=== PATIENT | female | born 1970 | race Caucasian/White ===

== ENCOUNTER 2018-04-11 14:04 | Emergency (ER) | payer OTHER ==
[~2018-04-11] VITALS: Ht 165.1 cm; Wt 90.0 kg
[~2018-04-11 14:04] MED LIST: AMOXICILLIN500 M2 PO; AMOXICILLIN500 MG OR; BACTRIM DS1 TAB PO; CARBATROL100 MG OR; CHERATUSSIN OR; CIPROFLOXACN500 MG PO; FLEXERIL PO; KEFLEX500 M1 PO; LEXAPRO10 MG OR; LISINOPRIL10 MG PO; LORTAB 10 PO; LORTAB 10-325 M1 TAB PO; LORTAB 5/3255 MG PO; NAPROSYN500 MG PO; PHENERGAN25 M1 PR; PHENERGAN25 MG/TAB PO; TRILEPTAL150 MG OR; ULTRAM50 M1 PO; ULTRAM50 MG PO; ZOFRAN ODT4 MG PO
[2018-04-11] MEDS ORDERED: TESSALON PERLE100 MG PO (15:37)
[2018-04-11 15:44] VITALS: BP 144/74
== END 2018-04-11 15:44 | disposition home or self-care (01) ==
LOC: ED 14:04
DX: R05 Cough (principal); F17.210 Nicotine dependence, cigarettes, uncomplicated; R09.81 Nasal congestion

== ENCOUNTER 2018-08-05 09:07 | Emergency (ER) | payer OTHER ==
[~2018-08-05] VITALS: Ht 165.1 cm; Wt 90.9 kg
[~2018-08-05 09:07] MED LIST changes: +TESSALON PERLE100 MG PO
[2018-08-05] MEDS ORDERED: PREDNISONE50 MG PO ×2 (09:36→10:55)
[2018-08-05] MEDS ORDERED: PROAIR HFA108 MCG/AC PO ×2 (09:37→10:55)
[2018-08-05 09:44] LABS: HEMOGLOBIN 14.6 g/dl (12.0-16.0); IMMATURE GRANULOCYTES 0.4 % (0.0-5.0); MEAN CORPUSCULAR HGB CONC 32.4 g/L CALC (32.0-36.0); NEUT# 4.52 thou/uL (2.00-7.15); RED BLOOD COUNT 5.04 mill/uL (4.20-5.60); RED CELL DISTRI WIDTH 13.2 % (11.5-15.5)
[2018-08-05 09:51] LABS: ANION GAP 12 (6-22 (CALC)); BUN 14 mg/dL (7-17); BUN/CREATININE RATIO 26 (12-20 (CALC)); CARBON DIOXIDE 28 mmol/l (22-30); CHLORIDE 107 mmol/l (95-108); CREATININE 0.6 mg/dL (0.5-1.0); GFR > 60 ML/MIN (>=60 (CALC)); GFR FOR AFR.AMER. > 60 ML/MIN (>=60 (CALC)); POTASSIUM 4.7 mmol/l (3.5-5.1); SODIUM 142 mmol/l (137-146)
[2018-08-05 09:56] LABS: MEAN CELL VOLUME 89.3 fL CALC (80.0-100.0)
[2018-08-05] MEDS ORDERED: ZPAK PO ×2 (10:00→10:55)
[2018-08-05 10:19] VITALS: BP 135/66
== END 2018-08-05 10:19 | disposition left against medical advice (07) ==
LOC: ED 09:07
PROVIDERS: Family Medicine
DX: J44.1 Chronic obstructive pulmonary disease with (acute) exacerbation (principal); J45.901 Unspecified asthma with (acute) exacerbation; I10 Essential (primary) hypertension; F17.200 Nicotine dependence, unspecified, uncomplicated; R06.02 Shortness of breath; R06.2 Wheezing; R05 Cough

== ENCOUNTER 2019-07-23 21:57 | Emergency (ER) | payer OTHER ==
[~2019-07-23] VITALS: Ht 165.1 cm; Wt 77.0 kg
[~2019-07-23 21:57] MED LIST changes: +PREDNISONE50 MG PO; +PROAIR HFA108 MCG/AC PO; +ZPAK PO
[2019-07-24] MEDS ORDERED: BACTRIM DS1 TAB PO (00:11)
[2019-07-24] MEDS ORDERED: BACTROBAN TOP (00:11)
[2019-07-24] MEDS ORDERED: KEFLEX500 MG PO (00:11)
[2019-07-24 00:36] VITALS: BP 118/81
== END 2019-07-24 00:20 | disposition left against medical advice (07) ==
LOC: ED 21:57
DX: S91.301A Unspecified open wound, right foot, initial encounter (principal); L08.9 Local infection of the skin and subcutaneous tissue, unspecified; J43.9 Emphysema, unspecified; I10 Essential (primary) hypertension; F17.210 Nicotine dependence, cigarettes, uncomplicated; W22.8XXA Striking against or struck by other objects, initial encounter; Y92.009 Unspecified place in unspecified non-institutional (private) residence as the place of occurrence of the external cause; Z91.19 Patient's noncompliance with other medical treatment and regimen

== ENCOUNTER 2019-07-29 14:37 | Emergency (ER) | payer OTHER ==
[~2019-07-29] VITALS: Ht 165.1 cm; Wt 77.0 kg
[~2019-07-29 14:37] MED LIST changes: +BACTROBAN TOP; +KEFLEX500 MG PO
[2019-07-29] MEDS ORDERED: BACTRIM DS1 TAB PO (15:56)
[2019-07-29] MEDS ORDERED: KEFLEX500 MG PO (15:56)
[2019-07-29 16:25] VITALS: BP 131/85
== END 2019-07-29 17:01 | disposition home or self-care (01) ==
LOC: ED 14:37
DX: T23.211D Burn of second degree of right thumb (nail), subsequent encounter (principal); L03.011 Cellulitis of right finger; S90.811D Abrasion, right foot, subsequent encounter; L03.115 Cellulitis of right lower limb; I10 Essential (primary) hypertension; J43.9 Emphysema, unspecified; F17.200 Nicotine dependence, unspecified, uncomplicated; X10.2XXD Contact with fats and cooking oils, subsequent encounter; X58.XXXD Exposure to other specified factors, subsequent encounter

== ENCOUNTER 2019-09-24 08:50 | Emergency (ER) | payer OTHER ==
[~2019-09-24] VITALS: Ht 165.1 cm; Wt 69.0 kg
[2019-09-24] MEDS ORDERED: CEPHALEXIN500 M1 PO (09:18)
[2019-09-24] MEDS ORDERED: BACTRIM DS1 TAB PO (09:18)
[2019-09-24 10:10] VITALS: BP 142/74
== END 2019-09-24 10:10 | disposition home or self-care (01) ==
LOC: ED 08:50
DX: L03.315 Cellulitis of perineum (principal); I10 Essential (primary) hypertension; J43.9 Emphysema, unspecified; F17.210 Nicotine dependence, cigarettes, uncomplicated

== ENCOUNTER 2019-12-15 | Emergency (ER) | payer OTHER ==
[~2019-12-15] MED LIST changes: +CEPHALEXIN500 M1 PO
[2019-12-15 21:44] LABS: HEMATOCRIT 39.4 % (37.0-47.0); HEMOGLOBIN 12.7 g/dl (12.0-16.0); IMMATURE GRANULOCYTES 0.4 % (0.0-5.0); MEAN CELL VOLUME 87.2 fL CALC (80.0-100.0); MEAN CORPUSCULAR HGB 28.1 pG CALC (26.0-32.0); MEAN CORPUSCULAR HGB CONC 32.2 g/L CALC (32.0-36.0); NEUT# 8.46 thou/uL (2.00-7.15); RED BLOOD COUNT 4.52 mill/uL (4.20-5.60); RED CELL DISTRI WIDTH 12.9 % (11.5-15.5)
[2019-12-15 21:54] LABS: ALBUMIN 3.9 g/dL (3.2-5.0); ALKALINE PHOSPHATASE 80 u/l (38-126); AMYLASE 44 u/l (30-110); ANION GAP 10 (6-22 (CALC)); BUN 16 mg/dL (7-17); BUN/CREATININE RATIO 31 (12-20 (CALC)); CARBON DIOXIDE 28 mmol/l (22-30); CHLORIDE 105 mmol/l (95-108); CREATININE 0.5 mg/dL (0.5-1.0); GFR > 60 ML/MIN (>=60 (CALC)); GFR FOR AFR.AMER. > 60 ML/MIN (>=60 (CALC)); LIPASE 68 u/l (23-300); POTASSIUM 4.5 mmol/l (3.5-5.1); SGOT/AST 16 u/l (14-36); SODIUM 139 mmol/l (137-146); TOTAL PROTEIN 7.1 g/dL (6.3-8.2)
[2019-12-15 21:55] LABS: BILIRUBIN, TOTAL 0.4 mg/dL (0.0-1.4)
[2019-12-16] MEDS ORDERED: NAPROXEN500 MG PO (00:22)
== END 2019-12-16 00:50 | disposition home or self-care (01) ==
PROVIDERS: Emergency Medicine
DX: K41.90 Unilateral femoral hernia, without obstruction or gangrene, not specified as recurrent (principal); I10 Essential (primary) hypertension
CPT/HCPCS: Q9967

== ENCOUNTER 2020-03-10 18:16 | Emergency (ER) | payer OTHER ==
[~2020-03-10 18:16] MED LIST changes: +NAPROXEN500 MG PO
[2020-03-10 19:24] VITALS: BP 140/96
== END 2020-03-10 20:00 | disposition left against medical advice (07) ==
LOC: ED 18:16
DX: M25.512 Pain in left shoulder (principal); I10 Essential (primary) hypertension; F17.210 Nicotine dependence, cigarettes, uncomplicated; Y04.0XXA Assault by unarmed brawl or fight, initial encounter; Y92.009 Unspecified place in unspecified non-institutional (private) residence as the place of occurrence of the external cause; Z91.19 Patient's noncompliance with other medical treatment and regimen

== ENCOUNTER 2020-03-23 16:25 | Observation (INO) | payer OTHER ==
[~2020-03-23] VITALS: Ht 165.1 cm; Wt 64.0 kg
--- NOTE | 2020-03-23 16:25 | NUR ---
Pt immediately to room # 6 via EMS stretcher
--- NOTE | 2020-03-23 16:45 | NUR ---
PATIENT REPORTS SMOKING SYNTHETIC MARIJUANA, METH AND WEED THIS AM. PT FEELING DIZZY AND PARANOID. PERSHIRA. PT UPDATED ON PLAN OF CARE AND WAIT TIME. CALL ALFREDO WITHIN REACH.
--- NOTE | 2020-03-23 17:05 | NUR ---
PATIENT AMBULATED TO THE BATHROOM WITH A STEADY GAIT TO OBTAIN URINE SAMPLE.
[2020-03-23 17:13] LABS: HEMOGLOBIN 12.7 g/dl (12.0-16.0); IMMATURE GRANULOCYTES 0.3 % (0.0-5.0); MEAN CELL VOLUME 85.3 fL CALC (80.0-100.0); MEAN CORPUSCULAR HGB 27.8 pG CALC (26.0-32.0); MEAN CORPUSCULAR HGB CONC 32.6 g/dL CAL (32.0-36.0); NEUT# 7.44 thou/uL (2.00-7.15); RED BLOOD COUNT 4.57 mill/uL (4.20-5.60); RED CELL DISTRI WIDTH 13.3 % (11.5-15.5)
[2020-03-23 17:14] LABS: URINE BILIRUBIN - DIPSTICK NEGATIVE (NEGATIVE); URINE BLOOD DIPSTICK LARGE (NEGATIVE); URINE COLOR YELLOW; URINE GLUCOSE - DIPSTICK NEGATIVE (NEGATIVE); URINE KETONE NEGATIVE (NEGATIVE); URINE LEUK ESTERASE SMALL (NEGATIVE); URINE NITRITE - DIPSTICK NEGATIVE (Negative); URINE PH 5.5 (4.5-8.0); URINE PROTEIN - DIPSTICK NEGATIVE (NEG-TRACE); URINE UROBILINOGEN - DIPSTICK 0.2 E.U./dL (0.2)
[2020-03-23 17:23] LABS: URINE RBC TNTC RBC/hpf (0-5); URINE SQUAMOUS EPITHELIAL CELL FEW EPI/hpf (0-FEW)
--- NOTE | 2020-03-23 18:00 | NUR ---
PATIENT RESTING IN STRETCHER WITH EYES CLOSED AND DENIES ANY NEEDS AT THIS TIME. IV FLUIDS INFUSING WITH NO DIFFICULTY. CALL ALFREDO WITHIN REACH.
[2020-03-23 18:28] LABS: INTERNATIONAL NORMALIZED RATIO 0.9 RATIO (0.7-1.3); PROTHROMBIN TIME 9.7 SECONDS (9.0-12.5)
[2020-03-23 18:30] LABS: ALBUMIN 3.7 g/dL (3.2-5.0); ALKALINE PHOSPHATASE 68 u/l (38-126); ANION GAP 8 (6-22 (CALC)); BILIRUBIN, TOTAL 0.4 mg/dL (0.0-1.4); BUN 14 mg/dL (7-17); BUN/CREATININE RATIO 26 (12-20 (CALC)); CARBON DIOXIDE 26 mmol/l (22-30); CHLORIDE 104 mmol/l (95-108); CREATININE 0.5 mg/dL (0.5-1.0); ETHYL ALCOHOL 0 mg/dl (0-30); GFR > 60 ML/MIN (>=60 (CALC)); GFR FOR AFR.AMER. > 60 ML/MIN (>=60 (CALC)); MAGNESIUM 1.9 mg/dL (1.6-2.3); POTASSIUM 3.8 mmol/l (3.5-5.1); SODIUM 134 mmol/l (137-146); TOTAL PROTEIN 6.8 g/dL (6.3-8.2)
[2020-03-23 18:33] LABS: SGOT/AST 43 u/l (14-36)
[2020-03-23 18:41] LABS: MYOGLOBIN 33 ng/mL (0 - 62)
--- NOTE | 2020-03-23 18:48 | NUR ---
REPORT TO EMILIANO AGUILA.
--- NOTE | 2020-03-23 19:01 | NUR ---
PT TO BE ADMITTED, ASKED DR GALICIA TO PLEASE INFORM PT OF ADMIT DUE TO HER SIGNING OUT AMA FREQUENTLY
--- NOTE | 2020-03-23 19:50 | NUR ---
PT NEGATIVE FOR BLOOD CALLED FLOOR FOR REPORT. TESSA IN WITH PT SHE WILL CALL BACK.
--- NOTE | 2020-03-23 20:35 | NUR ---
Admission Note Report Given to: EMILIANO ZARATE Transported by: X Wheelchair Stretcher Transported with: X Nurse Transporter X Patent IV O2 X Steam Roller Operator Location: ICU X [facility]
--- NOTE | 2020-03-23 20:40 | NUR ---
PT ARRIVED TO THE MED SURG UNIT VIA STRETCHER ACCOMPANIED BY ED NURSE. V/S ASSESSED, SEIZURE PRECAUTIONS APPLIED TO BED. PT FELL ASLEEP IMMEDIATELY AND WILL NOT RESPOND TO ANY OF US TO ANSWER QUESTIONS APPROPRIATELY. V/S ARE STABLE AT 125/79 BP. NO S/O DISTRESS NOTED.
[2020-03-23 21:15] VITALS: BP 132/93
--- NOTE | 2020-03-23 23:00 | NUR ---
PT SLEEPING AT THIS TIME. NO S/O DISTRESS NOTED. WILL CONTINUE TO MONITOR.
[2020-03-23 23:20] VITALS: BP 145/94
[2020-03-24 03:50] VITALS: BP 127/88
--- NOTE | 2020-03-24 03:50 | NUR ---
AIRCRAFT DETAIL DRAFTSPERSON IS IN W/PT OBTAINING V/S. PT IS SLEEPING. NO S/O DISTRESS.
[2020-03-24 05:27] LABS: ANION GAP 6 (6-22 (CALC)); BUN 10 mg/dL (7-17); BUN/CREATININE RATIO 20 (12-20 (CALC)); CARBON DIOXIDE 26 mmol/l (22-30); CHLORIDE 107 mmol/l (95-108); CREATININE 0.5 mg/dL (0.5-1.0); GFR > 60 ML/MIN (>=60 (CALC)); GFR FOR AFR.AMER. > 60 ML/MIN (>=60 (CALC)); POTASSIUM 3.9 mmol/l (3.5-5.1); SODIUM 136 mmol/l (137-146)
--- NOTE | 2020-03-24 07:00 | NUR ---
REPORT RECEIVED FROM EMILIANO ZARATE. PT RESTING IN BED SUPINE WITH EYES CLOSED; AWAKENS TO VERBAL STIMULI. ASKS WHEN BREAKFAST IS BEING DELIVERED. DENIES PAIN. RESPIRATIONS EVEN AND UNLABORED ON ROOM AIR. VSS. PLAN OF CARE REVIEWED. PT ENCOURAGED TO VERBALIZE CONCERNS STATES UNDERSTANDING. SAFETY MEASURES IN PLACE. CALL LIGHT WITHIN REACH.
[2020-03-24 08:00] VITALS: BP 131/87
--- NOTE | 2020-03-24 08:37 | NUR ---
Patient decides to leave AMA. Removed her IV. Multiple attempts made to encourage patient to remain here for continued treatment. Explained to patient all risks of leaving against medical advice including . Pt verbalized understanding of all risks. Pt also encouraged to return to [facility] at any time, especially if symptoms continue or become worse. Pt verbalized understanding.
--- NOTE | 2020-03-24 08:44 | NUR ---
PT ASKING WHEN DOCTOR WILL SEE HER BECAUSE SHE IS READY TO LEAVE.
== END 2020-03-24 08:37 | disposition left against medical advice (07) ==
LOC: ED 16:25 → ED-I 18:51 → ED 19:07 → ED-I 19:08 → MS2 20:00
PROVIDERS: Emergency Medicine; ADMIT Internal Medicine; ATTEND Internal Medicine
DX: T40.7X1A Poisoning by cannabis (derivatives), accidental (unintentional), initial encounter (principal); R42 Dizziness and giddiness; R56.9 Unspecified convulsions; I10 Essential (primary) hypertension; F17.200 Nicotine dependence, unspecified, uncomplicated; Y92.009 Unspecified place in unspecified non-institutional (private) residence as the place of occurrence of the external cause; Z20.828 Contact with and (suspected) exposure to other viral communicable diseases
CPT/HCPCS: G0378

== ENCOUNTER 2020-10-13 01:39 | Emergency (ER) | payer OTHER ==
[~2020-10-13] VITALS: Ht 170.2 cm; Wt 70.0 kg
[2020-10-13 02:27] LABS: HEMATOCRIT 33.7 % (37.0-47.0); IMMATURE GRANULOCYTES 0.8 % (0.0-5.0); MEAN CELL VOLUME 87.8 fL CALC (80.0-100.0); MEAN CORPUSCULAR HGB 27.6 pG CALC (26.0-32.0); MEAN CORPUSCULAR HGB CONC 31.5 g/dL CAL (32.0-36.0); NEUT# 6.24 thou/uL (2.00-7.15); RED BLOOD COUNT 3.84 mill/uL (4.20-5.60); RED CELL DISTRI WIDTH 12.9 % (11.5-15.5)
[2020-10-13 02:34] LABS: HEMOGLOBIN 10.6 g/dl (12.0-16.0)
[2020-10-13 02:39] LABS: ALBUMIN 3.3 g/dL (3.2-5.0); ALKALINE PHOSPHATASE 97 u/l (38-126); ANION GAP 8 (6-22 (CALC)); BILIRUBIN, TOTAL 0.4 mg/dL (0.0-1.4); BUN 10 mg/dL (7-17); BUN/CREATININE RATIO 25 (12-20 (CALC)); CARBON DIOXIDE 29 mmol/l (22-30); CHLORIDE 106 mmol/l (95-108); CREATININE 0.4 mg/dL (0.5-1.0); GFR > 60 ML/MIN (>=60 (CALC)); GFR FOR AFR.AMER. > 60 ML/MIN (>=60 (CALC)); POTASSIUM 3.8 mmol/l (3.5-5.1); SGOT/AST 74 u/l (14-36); SODIUM 139 mmol/l (137-146); TOTAL PROTEIN 6.6 g/dL (6.3-8.2)
[2020-10-13 02:47] LABS: URINE BILIRUBIN - DIPSTICK NEGATIVE (NEGATIVE); URINE BLOOD DIPSTICK TRACE-INTACT (NEGATIVE); URINE COLOR YELLOW; URINE GLUCOSE - DIPSTICK NEGATIVE (NEGATIVE); URINE KETONE NEGATIVE (NEGATIVE); URINE LEUK ESTERASE NEGATIVE (NEGATIVE); URINE NITRITE - DIPSTICK NEGATIVE (Negative); URINE PROTEIN - DIPSTICK NEGATIVE (NEG-TRACE); URINE SPECIFIC GRAVITY 1.015; URINE UROBILINOGEN - DIPSTICK 0.2 E.U./dL (0.2)
[2020-10-13 02:57] LABS: PROTHROMBIN TIME 10.1 SECONDS (9.0-12.5)
[2020-10-13 04:21] VITALS: BP 143/93
== END 2020-10-13 04:12 | disposition short-term general hospital (02) ==
LOC: ED 01:39
PROVIDERS: Emergency Medicine
DX: I21.4 Non-ST elevation (NSTEMI) myocardial infarction (principal); I11.0 Hypertensive heart disease with heart failure; I50.9 Heart failure, unspecified; J44.9 Chronic obstructive pulmonary disease, unspecified; F17.210 Nicotine dependence, cigarettes, uncomplicated; F41.9 Anxiety disorder, unspecified; Z20.822 Contact with and (suspected) exposure to COVID-19
CPT/HCPCS: Q9967

== ENCOUNTER 2020-10-28 00:44 | Emergency (ER) | payer OTHER ==
[~2020-10-28] VITALS: Ht 170.2 cm; Wt 68.0 kg
[2020-10-28] MEDS ORDERED: PLAVIX75 MG PO (01:13)
[2020-10-28] MEDS ORDERED: LIPITOR20 M1 PO (01:13)
[2020-10-28 02:17] LABS: IMMATURE GRANULOCYTES 0.4 % (0.0-5.0); MEAN CELL VOLUME 87.4 fL CALC (80.0-100.0); MEAN CORPUSCULAR HGB 27.7 pG CALC (26.0-32.0); MEAN CORPUSCULAR HGB CONC 31.7 g/dL CAL (32.0-36.0); NEUT# 8.77 thou/uL (2.00-7.15); RED BLOOD COUNT 4.62 mill/uL (4.20-5.60)
[2020-10-28 02:20] LABS: HEMATOCRIT 40.4 % (37.0-47.0); HEMOGLOBIN 12.8 g/dl (12.0-16.0)
[2020-10-28 02:24] LABS: ALKALINE PHOSPHATASE 89 u/l (38-126); ANION GAP 10 (6-22 (CALC)); BUN 10 mg/dL (7-17); BUN/CREATININE RATIO 22 (12-20 (CALC)); CARBON DIOXIDE 31 mmol/l (22-30); CHLORIDE 102 mmol/l (95-108); CREATININE 0.5 mg/dL (0.5-1.0); GFR > 60 ML/MIN (>=60 (CALC)); GFR FOR AFR.AMER. > 60 ML/MIN (>=60 (CALC)); POTASSIUM 3.9 mmol/l (3.5-5.1); SGOT/AST 33 u/l (14-36); SODIUM 138 mmol/l (137-146); TOTAL PROTEIN 7.4 g/dL (6.3-8.2)
[2020-10-28 02:32] LABS: URINE BILIRUBIN - DIPSTICK NEGATIVE (NEGATIVE); URINE BLOOD DIPSTICK TRACE-INTACT (NEGATIVE); URINE COLOR YELLOW; URINE GLUCOSE - DIPSTICK NEGATIVE (NEGATIVE); URINE KETONE NEGATIVE (NEGATIVE); URINE LEUK ESTERASE TRACE (NEGATIVE); URINE NITRITE - DIPSTICK NEGATIVE (Negative); URINE PROTEIN - DIPSTICK NEGATIVE (NEG-TRACE); URINE UROBILINOGEN - DIPSTICK 0.2 E.U./dL (0.2)
[2020-10-28 02:38] LABS: BILIRUBIN, TOTAL 0.8 mg/dL (0.0-1.4)
[2020-10-28 04:00] VITALS: BP 130/78
== END 2020-10-28 06:20 | disposition home or self-care (01) ==
LOC: ED 00:44
PROVIDERS: Emergency Medicine
DX: J44.9 Chronic obstructive pulmonary disease, unspecified (principal); I11.0 Hypertensive heart disease with heart failure; I50.9 Heart failure, unspecified; F41.9 Anxiety disorder, unspecified; F17.200 Nicotine dependence, unspecified, uncomplicated; Z87.01 Personal history of pneumonia (recurrent); Z20.822 Contact with and (suspected) exposure to COVID-19

== ENCOUNTER 2020-10-31 14:42 | Emergency (ER) | payer OTHER ==
[~2020-10-31] VITALS: Ht 170.2 cm; Wt 65.0 kg
[~2020-10-31 14:42] MED LIST changes: +LIPITOR20 M1 PO; +PLAVIX75 MG PO
--- NOTE | 2020-10-31 15:07 | NUR ---
PT RECIEVED N ER VIA EMS C ETT PLACED. BBS=, PT SPO2 100 ND PLACED ON VENT. BG OBTAINED AND ANALYZED. VENT CHANGES MADE WERE INCREASE R FROM 18 TO 20 AND DECREASE FIO2 FROM 10 TO 50 PER ABG RESULTS. AWARE. ATHLETE MANAGER TO MONITOR.
[2020-10-31 15:37] LABS: GFR > 60 ML/MIN (>=60 (CALC)); GFR FOR AFR.AMER. > 60 ML/MIN (>=60 (CALC))
[2020-10-31 15:43] LABS: HEMATOCRIT 38.9 % (37.0-47.0); HEMOGLOBIN 12.3 g/dl (12.0-16.0); IMMATURE GRANULOCYTES 0.4 % (0.0-5.0); MEAN CORPUSCULAR HGB 27.5 pG CALC (26.0-32.0); MEAN CORPUSCULAR HGB CONC 31.6 g/dL CAL (32.0-36.0); NEUT# 13.14 thou/uL (2.00-7.15); RED BLOOD COUNT 4.47 mill/uL (4.20-5.60); RED CELL DISTRI WIDTH 12.6 % (11.5-15.5)
--- NOTE | 2020-10-31 15:52 | NUR ---
ett changed as per md order. bbs=. spo2 maintained. sql developer to monitor.
[2020-10-31 16:01] LABS: ALBUMIN 3.8 g/dL (3.2-5.0); ALKALINE PHOSPHATASE 84 u/l (38-126); ANION GAP 11 (6-22 (CALC)); BILIRUBIN, TOTAL 0.7 mg/dL (0.0-1.4); BUN 15 mg/dL (7-17); BUN/CREATININE RATIO 29 (12-20 (CALC)); CARBON DIOXIDE 31 mmol/l (22-30); CHLORIDE 96 mmol/l (95-108); CREATININE 0.5 mg/dL (0.5-1.0); ETHYL ALCOHOL 0 mg/dl (0-30); GFR > 60 ML/MIN (>=60 (CALC)); GFR FOR AFR.AMER. > 60 ML/MIN (>=60 (CALC)); INTERNATIONAL NORMALIZED RATIO 1.1 RATIO (0.7-1.3); LIPASE 70 u/l (23-300); MAGNESIUM 1.8 mg/dL (1.6-2.3); POTASSIUM 3.9 mmol/l (3.5-5.1); SGOT/AST 47 u/l (14-36); SODIUM 134 mmol/l (137-146); TOTAL PROTEIN 7.1 g/dL (6.3-8.2)
[2020-10-31 16:33] LABS: URINE BILIRUBIN - DIPSTICK NEGATIVE (NEGATIVE); URINE BLOOD DIPSTICK MODERATE (NEGATIVE); URINE COLOR YELLOW; URINE GLUCOSE - DIPSTICK NEGATIVE (NEGATIVE); URINE KETONE NEGATIVE (NEGATIVE); URINE LEUK ESTERASE NEGATIVE (NEGATIVE); URINE NITRITE - DIPSTICK NEGATIVE (Negative); URINE PH 5.5 (4.5-8.0); URINE PROTEIN - DIPSTICK 100 mg/dL (NEG-TRACE); URINE SPECIFIC GRAVITY >=1.030; URINE UROBILINOGEN - DIPSTICK 0.2 E.U./dL (0.2)
[2020-10-31 16:36] LABS: C-REACTIVE PROTEIN 1.9 mg/dL (0-0.9)
[2020-10-31 16:41] LABS: URINE BACTERIA MANY hpf; URINE SQUAMOUS EPITHELIAL CELL FEW EPI/hpf (0-FEW)
[2020-10-31 19:59] VITALS: BP 136/90
--- NOTE | 2020-11-02 07:19 | NUR ---
URINE CULTURE RESULTS CALLED TO [facility] ICU NURSE CHLOE AND FAXED TO [phone]
== END 2020-10-31 19:59 | disposition short-term general hospital (02) ==
LOC: ED 14:42
PROVIDERS: Family Medicine
DX: J96.00 Acute respiratory failure, unspecified whether with hypoxia or hypercapnia (principal); J69.0 Pneumonitis due to inhalation of food and vomit; R41.82 Altered mental status, unspecified; I11.0 Hypertensive heart disease with heart failure; I50.9 Heart failure, unspecified; J44.9 Chronic obstructive pulmonary disease, unspecified; F41.9 Anxiety disorder, unspecified; F17.200 Nicotine dependence, unspecified, uncomplicated; Z20.822 Contact with and (suspected) exposure to COVID-19; R82.71 Bacteriuria
CPT/HCPCS: Q9967

== ENCOUNTER 2020-11-04 07:50 | Emergency (ER) | payer OTHER ==
[~2020-11-04] VITALS: Ht 170.2 cm; Wt 68.0 kg
[2020-11-04 09:15] LABS: HEMOGLOBIN 13.7 g/dl (12.0-16.0); IMMATURE GRANULOCYTES 0.4 % (0.0-5.0); MEAN CELL VOLUME 88.9 fL CALC (80.0-100.0); MEAN CORPUSCULAR HGB 27.1 pG CALC (26.0-32.0); MEAN CORPUSCULAR HGB CONC 30.4 g/dL CAL (32.0-36.0); NEUT# 5.55 thou/uL (2.00-7.15); RED BLOOD COUNT 5.06 mill/uL (4.20-5.60); RED CELL DISTRI WIDTH 13.2 % (11.5-15.5)
[2020-11-04 09:44] LABS: ALBUMIN 4.3 g/dL (3.2-5.0); ALKALINE PHOSPHATASE 79 u/l (38-126); ANION GAP 11 (6-22 (CALC)); BUN 14 mg/dL (7-17); BUN/CREATININE RATIO 31 (12-20 (CALC)); CARBON DIOXIDE 31 mmol/l (22-30); CHLORIDE 103 mmol/l (95-108); CREATININE 0.5 mg/dL (0.5-1.0); ETHYL ALCOHOL 0 mg/dl (0-30); GFR > 60 ML/MIN (>=60 (CALC)); GFR FOR AFR.AMER. > 60 ML/MIN (>=60 (CALC)); LIPASE 66 u/l (23-300); POTASSIUM 4.2 mmol/l (3.5-5.1); SGOT/AST 34 u/l (14-36); SODIUM 140 mmol/l (137-146)
[2020-11-04 10:04] LABS: BILIRUBIN, TOTAL 0.4 mg/dL (0.0-1.4)
[2020-11-04 12:01] VITALS: BP 148/91
[2020-11-04] MEDS ORDERED: VENTOLIN HFA IN (12:04)
[2020-11-04] MEDS ORDERED: ZPAK PO (12:04)
[2020-11-04] MEDS ORDERED: MEDDOSEPAK PO (12:04)
== END 2020-11-04 12:01 | disposition home or self-care (01) ==
LOC: ED 07:50
DX: J40 Bronchitis, not specified as acute or chronic (principal); J04.0 Acute laryngitis; F15.10 Other stimulant abuse, uncomplicated; I11.0 Hypertensive heart disease with heart failure; I50.9 Heart failure, unspecified; F41.9 Anxiety disorder, unspecified; F17.210 Nicotine dependence, cigarettes, uncomplicated; Z91.19 Patient's noncompliance with other medical treatment and regimen; Z20.822 Contact with and (suspected) exposure to COVID-19

== ENCOUNTER 2020-11-17 09:45 | Inpatient (IN) | payer OTHER ==
[~2020-11-17] VITALS: Ht 167.6 cm; Wt 68.3 kg
[2020-11-17] VITALS (13 sets, daily range): BP systolic 102–159; BP diastolic 64–100
[~2020-11-17 09:45] MED LIST changes: +MEDDOSEPAK PO; +VENTOLIN HFA IN
[2020-11-17 10:11] LABS: HEMOGLOBIN 12.8 g/dl (12.0-16.0); IMMATURE GRANULOCYTES 0.4 % (0.0-5.0); MEAN CELL VOLUME 86.2 fL CALC (80.0-100.0); MEAN CORPUSCULAR HGB 27.6 pG CALC (26.0-32.0); NEUT# 10.48 thou/uL (2.00-7.15); RED BLOOD COUNT 4.64 mill/uL (4.20-5.60); RED CELL DISTRI WIDTH 13.6 % (11.5-15.5)
[2020-11-17 10:22] LABS: PROTHROMBIN TIME 9.6 SECONDS (9.0-12.5)
[2020-11-17 10:24] LABS: ALBUMIN 4.3 g/dL (3.2-5.0); ALKALINE PHOSPHATASE 85 u/l (38-126); BUN 15 mg/dL (7-17); BUN/CREATININE RATIO 29 (12-20 (CALC)); CHLORIDE 107 mmol/l (95-108); CPK 175 u/l (30-165); CREATININE 0.5 mg/dL (0.5-1.0); ETHYL ALCOHOL 69 mg/dl (0-30); GFR > 60 ML/MIN (>=60 (CALC)); GFR FOR AFR.AMER. > 60 ML/MIN (>=60 (CALC)); SGOT/AST 35 u/l (14-36); SODIUM 138 mmol/l (137-146); TOTAL PROTEIN 7.6 g/dL (6.3-8.2)
[2020-11-17 10:31] LABS: ANION GAP 11 (6-22 (CALC)); BILIRUBIN, TOTAL 0.8 mg/dL (0.0-1.4); CARBON DIOXIDE 24 mmol/l (22-30)
[2020-11-17 11:03] LABS: URINE BILIRUBIN - DIPSTICK NEGATIVE (NEGATIVE); URINE BLOOD DIPSTICK TRACE-INTACT (NEGATIVE); URINE COLOR YELLOW; URINE GLUCOSE - DIPSTICK NEGATIVE (NEGATIVE); URINE KETONE NEGATIVE (NEGATIVE); URINE LEUK ESTERASE NEGATIVE (NEGATIVE); URINE NITRITE - DIPSTICK NEGATIVE (Negative); URINE PH 5.5 (4.5-8.0); URINE PROTEIN - DIPSTICK NEGATIVE (NEG-TRACE); URINE SPECIFIC GRAVITY >=1.030; URINE UROBILINOGEN - DIPSTICK 0.2 E.U./dL (0.2)
[2020-11-17] MEDS ORDERED: LOPRESSOR25 MG PO (14:28)
[2020-11-17] MEDS ORDERED: LIPITOR40 M1 PO (14:29)
[2020-11-17] MEDS ORDERED: CLOPIDOGREL75 MG PO (14:29)
[2020-11-17] MEDS ORDERED: PROAIR HFA108 MCG/AC IN (14:29)
[2020-11-18] VITALS (21 sets, daily range): BP systolic 92–188; BP diastolic 62–100
[2020-11-18 05:33] LABS: HEMATOCRIT 38.7 % (37.0-47.0); HEMOGLOBIN 11.9 g/dl (12.0-16.0); IMMATURE GRANULOCYTES 0.2 % (0.0-5.0); MEAN CELL VOLUME 87.2 fL CALC (80.0-100.0); MEAN CORPUSCULAR HGB 26.8 pG CALC (26.0-32.0); MEAN CORPUSCULAR HGB CONC 30.7 g/dL CAL (32.0-36.0); NEUT# 5.98 thou/uL (2.00-7.15); RED BLOOD COUNT 4.44 mill/uL (4.20-5.60); RED CELL DISTRI WIDTH 13.8 % (11.5-15.5)
[2020-11-18 06:00] LABS: ALKALINE PHOSPHATASE 81 u/l (38-126); ANION GAP 6 (6-22 (CALC)); BUN 7 mg/dL (7-17); BUN/CREATININE RATIO 19 (12-20 (CALC)); CARBON DIOXIDE 27 mmol/l (22-30); CHLORIDE 108 mmol/l (95-108); CREATININE 0.4 mg/dL (0.5-1.0); GFR > 60 ML/MIN (>=60 (CALC)); GFR FOR AFR.AMER. > 60 ML/MIN (>=60 (CALC)); POTASSIUM 3.6 mmol/l (3.5-5.1); SGOT/AST 27 u/l (14-36); SODIUM 137 mmol/l (137-146)
[2020-11-18 06:01] LABS: ALBUMIN 3.1 g/dL (3.2-5.0); TOTAL PROTEIN 5.8 g/dL (6.3-8.2)
[2020-11-19] VITALS: BP 136/86
[2020-11-19 02:00] VITALS: BP 128/89
[2020-11-19 04:00] VITALS: BP 115/76
[2020-11-19 05:26] LABS: HEMATOCRIT 39.5 % (37.0-47.0); HEMOGLOBIN 12.2 g/dl (12.0-16.0); MEAN CELL VOLUME 88.2 fL CALC (80.0-100.0); MEAN CORPUSCULAR HGB 27.2 pG CALC (26.0-32.0); MEAN CORPUSCULAR HGB CONC 30.9 g/dL CAL (32.0-36.0); RED BLOOD COUNT 4.48 mill/uL (4.20-5.60); RED CELL DISTRI WIDTH 13.6 % (11.5-15.5)
[2020-11-19 05:51] LABS: ALBUMIN 3.1 g/dL (3.2-5.0); ALKALINE PHOSPHATASE 70 u/l (38-126); ANION GAP 8 (6-22 (CALC)); BILIRUBIN, TOTAL 0.8 mg/dL (0.0-1.4); BUN 10 mg/dL (7-17); BUN/CREATININE RATIO 21 (12-20 (CALC)); CARBON DIOXIDE 30 mmol/l (22-30); CHLORIDE 100 mmol/l (95-108); CREATININE 0.5 mg/dL (0.5-1.0); GFR > 60 ML/MIN (>=60 (CALC)); GFR FOR AFR.AMER. > 60 ML/MIN (>=60 (CALC)); MAGNESIUM 1.7 mg/dL (1.6-2.3); POTASSIUM 4.1 mmol/l (3.5-5.1); SGOT/AST 21 u/l (14-36); SODIUM 133 mmol/l (137-146); TOTAL PROTEIN 5.7 g/dL (6.3-8.2)
[2020-11-19 07:20] VITALS: BP 110/76
[2020-11-19 08:38] VITALS: BP 139/81
[2020-11-19 10:26] VITALS: BP 139/81
[2020-11-19] MEDS ORDERED: MEDDOSEPAK PO (10:42)
[2020-11-19] MEDS ORDERED: AMOX/K CLAV875 M1 PO (10:42)
== END 2020-11-19 12:00 | DRG 896 ==
LOC: ED 09:45 → ICU 14:23
PROVIDERS: Internal Medicine; Student in an Organized Health Care Education/Training Program; ADMIT Internal Medicine; ATTEND Internal Medicine
PROC: 0T9B70Z Drainage of Bladder with Drainage Device, Via Natural or Artificial Opening (ICD-10-PCS; principal; 2020-11-17)
DX: F15.180 Other stimulant abuse with stimulant-induced anxiety disorder (principal); G92 Toxic encephalopathy; J18.9 Pneumonia, unspecified organism; R45.851 Suicidal ideations; J44.1 Chronic obstructive pulmonary disease with (acute) exacerbation; J44.0 Chronic obstructive pulmonary disease with (acute) lower respiratory infection; F15.129 Other stimulant abuse with intoxication, unspecified; F19.10 Other psychoactive substance abuse, uncomplicated; F10.129 Alcohol abuse with intoxication, unspecified; I10 Essential (primary) hypertension; F32.9 Major depressive disorder, single episode, unspecified; J38.7 Other diseases of larynx; F17.210 Nicotine dependence, cigarettes, uncomplicated; Z20.822 Contact with and (suspected) exposure to COVID-19
CPT/HCPCS: J2060; J3475

== ENCOUNTER 2022-02-06 16:46 | Emergency (ER) | payer OTHER ==
[~2022-02-06] VITALS: Ht 167.6 cm; Wt 63.0 kg
[~2022-02-06 16:46] MED LIST changes: +AMOX/K CLAV875 M1 PO; +CLOPIDOGREL75 MG PO; +LIPITOR40 M1 PO; +LOPRESSOR25 MG PO; +PROAIR HFA108 MCG/AC IN
[2022-02-06 16:52] VITALS: BP 131/96
[2022-02-06 17:00] VITALS: BP 133/94
[2022-02-06 17:30] VITALS: BP 115/83
[2022-02-06 18:00] VITALS: BP 130/92
== END 2022-02-06 19:37 | disposition home or self-care (01) ==
LOC: ED 16:46
DX: S01.112A Laceration without foreign body of left eyelid and periocular area, initial encounter (principal); I11.0 Hypertensive heart disease with heart failure; I50.9 Heart failure, unspecified; J44.9 Chronic obstructive pulmonary disease, unspecified; F12.10 Cannabis abuse, uncomplicated; F15.10 Other stimulant abuse, uncomplicated; F41.9 Anxiety disorder, unspecified; F17.200 Nicotine dependence, unspecified, uncomplicated; Y00.XXXA Assault by blunt object, initial encounter; Y92.009 Unspecified place in unspecified non-institutional (private) residence as the place of occurrence of the external cause

== ENCOUNTER 2022-02-15 08:34 | Emergency (ER) | payer OTHER ==
[~2022-02-15] VITALS: Ht 167.6 cm; Wt 55.0 kg
[2022-02-15 09:07] VITALS: BP 110/77
[2022-02-15 09:31] VITALS: BP 125/80
[2022-02-15] MEDS ORDERED: KEFLEX500 MG PO (09:44)
[2022-02-15 11:02] VITALS: BP 125/104
== END 2022-02-15 10:07 | disposition home or self-care (01) ==
LOC: ED 08:34
DX: S50.02XA Contusion of left elbow, initial encounter (principal); L03.114 Cellulitis of left upper limb; S50.312A Abrasion of left elbow, initial encounter; I11.0 Hypertensive heart disease with heart failure; I50.9 Heart failure, unspecified; J44.9 Chronic obstructive pulmonary disease, unspecified; F41.9 Anxiety disorder, unspecified; F17.210 Nicotine dependence, cigarettes, uncomplicated; V18.0XXA Pedal cycle driver injured in noncollision transport accident in nontraffic accident, initial encounter; Y93.55 Activity, bike riding; Y92.410 Unspecified street and highway as the place of occurrence of the external cause; Z59.00 Homelessness unspecified

== ENCOUNTER 2022-03-12 14:57 | Emergency (ER) | payer OTHER ==
[~2022-03-12] VITALS: Ht 167.6 cm; Wt 65.0 kg
[2022-03-12 15:01] VITALS: BP 133/99
[2022-03-12] MEDS ORDERED: KEFLEX500 MG PO (18:47)
[2022-03-12 18:59] VITALS: BP 133/99
== END 2022-03-12 19:09 | disposition home or self-care (01) ==
LOC: ED 14:57
DX: S80.211A Abrasion, right knee, initial encounter (principal); M25.511 Pain in right shoulder; I11.0 Hypertensive heart disease with heart failure; I50.9 Heart failure, unspecified; J44.9 Chronic obstructive pulmonary disease, unspecified; F41.9 Anxiety disorder, unspecified; F17.210 Nicotine dependence, cigarettes, uncomplicated; V18.0XXA Pedal cycle driver injured in noncollision transport accident in nontraffic accident, initial encounter; Y93.55 Activity, bike riding

== ENCOUNTER 2022-05-17 13:54 | Emergency (ER) | payer OTHER ==
[~2022-05-17] VITALS: Ht 167.6 cm; Wt 70.0 kg
[2022-05-17] MEDS ORDERED: TERBINAFINE1 % EX (15:53)
[2022-05-17] MEDS ORDERED: CEPHALEXIN500 M1 PO (15:53)
[2022-05-17 16:10] VITALS: BP 132/87
== END 2022-05-17 16:17 | disposition home or self-care (01) ==
LOC: ED 13:54
DX: L03.116 Cellulitis of left lower limb (principal); L03.115 Cellulitis of right lower limb; T63.421A Toxic effect of venom of ants, accidental (unintentional), initial encounter; B35.1 Tinea unguium

== ENCOUNTER 2022-06-28 12:40 | Emergency (ER) | payer OTHER ==
[~2022-06-28] VITALS: Ht 167.6 cm; Wt 58.9 kg
[~2022-06-28 12:40] MED LIST changes: +TERBINAFINE1 % EX
[2022-06-28 12:59] VITALS: BP 130/92
[2022-06-28 13:00] VITALS: BP 126/88
[2022-06-28 13:30] VITALS: BP 143/91
[2022-06-28 14:21] LABS: HEMATOCRIT 41.9 % (37.0-47.0); HEMOGLOBIN 13.9 g/dl (12.0-16.0); IMMATURE GRANULOCYTES 0.4 % (0.0-5.0); MEAN CELL VOLUME 85.9 fL CALC (80.0-100.0); MEAN CORPUSCULAR HGB 28.5 pG CALC (26.0-32.0); MEAN CORPUSCULAR HGB CONC 33.2 g/dL CAL (32.0-36.0); NEUT# 4.86 thou/uL (2.00-7.15); RED BLOOD COUNT 4.88 mill/uL (4.20-5.60); RED CELL DISTRI WIDTH 12.8 % (11.5-15.5)
[2022-06-28 14:29] LABS: ALBUMIN 4.2 g/dL (3.2-5.0); ALKALINE PHOSPHATASE 77 u/l (38-126); ANION GAP 12 (6-22 (CALC)); BILIRUBIN, TOTAL 0.3 mg/dL (0.0-1.4); BUN 18 mg/dL (7-17); BUN/CREATININE RATIO 33 (12-20 (CALC)); CARBON DIOXIDE 28 mmol/l (22-30); CHLORIDE 100 mmol/l (95-108); CREATININE 0.6 mg/dL (0.5-1.0); GFR FOR AFR.AMER. > 60 ML/MIN (>=60 (CALC)); GFR OTHER RACES > 60 ML/MIN (>=60 (CALC)); LIPASE 87 u/l (23-300); POTASSIUM 3.9 mmol/l (3.5-5.1); SODIUM 136 mmol/l (137-146); TOTAL PROTEIN 7.5 g/dL (6.3-8.2)
[2022-06-28 14:36] LABS: SGOT/AST 19 u/l (14-36)
[2022-06-28] MEDS ORDERED: BACTRIM DS1 TAB PO (15:34)
[2022-06-28] MEDS ORDERED: SENNA-S1 TAB PO (15:34)
[2022-06-28] MEDS ORDERED: DOXYCYCLINE100 MG PO (15:34)
[2022-06-28 15:37] VITALS: BP 143/91
== END 2022-06-28 15:45 | disposition home or self-care (01) ==
LOC: ED 12:40
PROVIDERS: Internal Medicine
DX: K59.00 Constipation, unspecified (principal); S81.009D Unspecified open wound, unspecified knee, subsequent encounter; W19.XXXD Unspecified fall, subsequent encounter; F15.10 Other stimulant abuse, uncomplicated; I11.0 Hypertensive heart disease with heart failure; I50.9 Heart failure, unspecified; J44.9 Chronic obstructive pulmonary disease, unspecified; F41.9 Anxiety disorder, unspecified; F31.9 Bipolar disorder, unspecified; F20.9 Schizophrenia, unspecified; F17.210 Nicotine dependence, cigarettes, uncomplicated

== ENCOUNTER 2022-07-07 21:26 | Emergency (ER) | payer OTHER ==
[~2022-07-07] VITALS: Ht 167.6 cm; Wt 65.0 kg
[~2022-07-07 21:26] MED LIST changes: +DOXYCYCLINE100 MG PO; +SENNA-S1 TAB PO
[2022-07-07 22:05] LABS: HEMATOCRIT 37.1 % (37.0-47.0); IMMATURE GRANULOCYTES 0.5 % (0.0-5.0); MEAN CELL VOLUME 88.8 fL CALC (80.0-100.0); MEAN CORPUSCULAR HGB 28.5 pG CALC (26.0-32.0); MEAN CORPUSCULAR HGB CONC 32.1 g/dL CAL (32.0-36.0); NEUT# 3.41 thou/uL (2.00-7.15); RED BLOOD COUNT 4.18 mill/uL (4.20-5.60); RED CELL DISTRI WIDTH 12.7 % (11.5-15.5)
[2022-07-07 22:06] LABS: HEMOGLOBIN 11.9 g/dl (12.0-16.0)
[2022-07-07 22:16] LABS: ALBUMIN 3.9 g/dL (3.2-5.0); ALKALINE PHOSPHATASE 78 u/l (38-126); ANION GAP 16 (6-22 (CALC)); BUN 21 mg/dL (7-17); BUN/CREATININE RATIO 29 (12-20 (CALC)); CARBON DIOXIDE 23 mmol/l (22-30); CHLORIDE 105 mmol/l (95-108); CREATININE 0.7 mg/dL (0.5-1.0); ETHYL ALCOHOL 174 mg/dl (0-30); GFR FOR AFR.AMER. > 60 ML/MIN (>=60 (CALC)); GFR OTHER RACES > 60 ML/MIN (>=60 (CALC)); POTASSIUM 3.4 mmol/l (3.5-5.1); SGOT/AST 27 u/l (14-36); SODIUM 140 mmol/l (137-146)
[2022-07-07 22:17] LABS: BILIRUBIN, TOTAL 0.1 mg/dL (0.0-1.4)
[2022-07-08 03:15] VITALS: BP 106/76
[2022-07-08 03:30] VITALS: BP 119/83
[2022-07-08 03:46] VITALS: BP 121/74
[2022-07-08 03:46] LABS: URINE BILIRUBIN - DIPSTICK NEGATIVE (NEGATIVE); URINE BLOOD DIPSTICK TRACE-INTACT (NEGATIVE); URINE COLOR YELLOW; URINE GLUCOSE - DIPSTICK NEGATIVE (NEGATIVE); URINE KETONE NEGATIVE (NEGATIVE); URINE LEUK ESTERASE NEGATIVE (NEGATIVE); URINE PROTEIN - DIPSTICK NEGATIVE (NEG-TRACE); URINE UROBILINOGEN - DIPSTICK 0.2 E.U./dL (0.2)
[2022-07-08 03:54] LABS: URINE NITRITE - DIPSTICK NEGATIVE (Negative)
[2022-07-08 04:00] VITALS: BP 129/75
[2022-07-08 05:43] VITALS: BP 129/75
== END 2022-07-08 05:53 | disposition home or self-care (01) ==
LOC: ED 21:26
PROVIDERS: Family Medicine
DX: F10.129 Alcohol abuse with intoxication, unspecified (principal); F15.10 Other stimulant abuse, uncomplicated; J44.9 Chronic obstructive pulmonary disease, unspecified; I11.0 Hypertensive heart disease with heart failure; I50.9 Heart failure, unspecified; F41.9 Anxiety disorder, unspecified; F31.9 Bipolar disorder, unspecified; F20.9 Schizophrenia, unspecified; F17.200 Nicotine dependence, unspecified, uncomplicated; Y90.6 Blood alcohol level of 120-199 mg/100 ml

== ENCOUNTER 2022-09-16 19:11 | Emergency (ER) | payer OTHER ==
[~2022-09-16] VITALS: Ht 167.6 cm; Wt 65.0 kg
[2022-09-16] VITALS (11 sets, daily range): BP systolic 123–140; BP diastolic 86–102
[2022-09-16 20:04] LABS: HEMATOCRIT 40.3 % (37.0-47.0); HEMOGLOBIN 13.6 g/dl (12.0-16.0); IMMATURE GRANULOCYTES 0.2 % (0.0-5.0); MEAN CELL VOLUME 86.9 fL CALC (80.0-100.0); MEAN CORPUSCULAR HGB 29.3 pG CALC (26.0-32.0); MEAN CORPUSCULAR HGB CONC 33.7 g/dL CAL (32.0-36.0); NEUT# 3.59 thou/uL (2.00-7.15); RED BLOOD COUNT 4.64 mill/uL (4.20-5.60)
[2022-09-16 20:17] LABS: ALBUMIN 3.9 g/dL (3.2-5.0); ALKALINE PHOSPHATASE 77 u/l (38-126); ANION GAP 13 (6-22 (CALC)); BUN 10 mg/dL (7-17); BUN/CREATININE RATIO 17 (12-20 (CALC)); CARBON DIOXIDE 26 mmol/l (22-30); CHLORIDE 107 mmol/l (95-108); CREATININE 0.6 mg/dL (0.5-1.0); ETHYL ALCOHOL 104 mg/dl (0-30); GFR FOR AFR.AMER. > 60 ML/MIN (>=60 (CALC)); GFR OTHER RACES > 60 ML/MIN (>=60 (CALC)); MAGNESIUM 2.1 mg/dL (1.6-2.3); POTASSIUM 3.7 mmol/l (3.5-5.1); SGOT/AST 29 u/l (14-36); SODIUM 142 mmol/l (137-146)
[2022-09-16 20:18] LABS: BILIRUBIN, TOTAL 0.6 mg/dL (0.0-1.4)
[2022-09-17] VITALS (9 sets, daily range): BP systolic 138–167; BP diastolic 93–110
== END 2022-09-17 04:20 | disposition left against medical advice (07) ==
LOC: ED 19:11
PROVIDERS: Family Medicine
DX: T65.91XA Toxic effect of unspecified substance, accidental (unintentional), initial encounter (principal); I11.0 Hypertensive heart disease with heart failure; I50.9 Heart failure, unspecified; J44.9 Chronic obstructive pulmonary disease, unspecified; F31.9 Bipolar disorder, unspecified; F17.200 Nicotine dependence, unspecified, uncomplicated; Z53.29 Procedure and treatment not carried out because of patient's decision for other reasons

== ENCOUNTER 2022-10-06 17:16 | Emergency (ER) | payer OTHER | END 2022-10-06 18:11 | disposition left against medical advice (07) | DRG 951 | LOC: ED 17:16 → LWOBS 18:11 | DX: Z53.21 Procedure and treatment not carried out due to patient leaving prior to being seen by health care provider (principal) ==

== ENCOUNTER 2022-10-23 11:39 | Emergency (ER) | payer OTHER ==
[~2022-10-23] VITALS: Ht 167.6 cm; Wt 65.9 kg
[2022-10-23] MEDS ORDERED: VIBRAMYCIN100 M2 PO (12:37)
[2022-10-23 13:07] VITALS: BP 132/94
== END 2022-10-23 13:15 | disposition home or self-care (01) ==
LOC: ED 11:39
DX: L03.113 Cellulitis of right upper limb (principal); S60.511A Abrasion of right hand, initial encounter; I11.0 Hypertensive heart disease with heart failure; I50.9 Heart failure, unspecified; J44.9 Chronic obstructive pulmonary disease, unspecified; F41.8 Other specified anxiety disorders; F31.9 Bipolar disorder, unspecified; F17.200 Nicotine dependence, unspecified, uncomplicated; W19.XXXA Unspecified fall, initial encounter; Y93.89 Activity, other specified; Z86.14 Personal history of Methicillin resistant Staphylococcus aureus infection

== ENCOUNTER 2022-11-08 04:59 | Emergency (ER) | payer OTHER ==
[~2022-11-08] VITALS: Ht 165.1 cm; Wt 45.0 kg
[~2022-11-08 04:59] MED LIST changes: +VIBRAMYCIN100 M2 PO
[2022-11-08 05:29] VITALS: BP 133/83
[2022-11-08 06:00] VITALS: BP 125/86
[2022-11-08] MEDS ORDERED: LORTAB 1010 MG PO (06:11)
[2022-11-08 06:34] VITALS: BP 125/86
== END 2022-11-08 06:35 | disposition home or self-care (01) ==
LOC: ED 04:59
DX: S22.31XA Fracture of one rib, right side, initial encounter for closed fracture (principal); I11.0 Hypertensive heart disease with heart failure; I50.9 Heart failure, unspecified; J44.9 Chronic obstructive pulmonary disease, unspecified; F41.9 Anxiety disorder, unspecified; F31.9 Bipolar disorder, unspecified; F17.200 Nicotine dependence, unspecified, uncomplicated; W01.0XXA Fall on same level from slipping, tripping and stumbling without subsequent striking against object, initial encounter; Y92.833 Campsite as the place of occurrence of the external cause